=== PATIENT | female | born 1985 | race Two or more races ===

== ENCOUNTER 2025-01-23 13:14 | Emergency (ER) | payer OTHER ==
[~2025-01-23] VITALS: Ht 162.6 cm; Wt 74.0 kg
[2025-01-23 13:24] VITALS: BP 113/74; PULSE 68; RESP 18; TEMP 98.6; O2SAT 98
[2025-01-23] MEDS: KETOROLAC TROMETHAMINE 30 MG/ML VIAL IVP ONE (14:37)
[2025-01-23] MEDS: METHOCARBAMOL 100 MG/ML 10 ML VIAL IVP ONE (14:37)
[2025-01-23] MEDS: MORPHINE SULFATE 4 MG/ML SYRINGE IVP ONE (14:38)
[2025-01-23] MEDS: ONDANSETRON HCL 4 MG/2 ML VIAL IVP ONE (14:38)
[2025-01-23] MEDS ORDERED: IBUP-1554 PO (15:21)
[2025-01-23] MEDS ORDERED: METH-659 PO (15:21)
[2025-01-23] MEDS ORDERED: HYDR-4062 PO (15:21)
== END 2025-01-23 15:46 | disposition home or self-care (01) ==
LOC: EMS 13:14
DX: S39.012A Strain of muscle, fascia and tendon of lower back, initial encounter (principal); I10 Essential (primary) hypertension; Z90.710 Acquired absence of both cervix and uterus; Z79.899 Other long term (current) drug therapy; X58.XXXA Exposure to other specified factors, initial encounter; Y93.89 Activity, other specified; Y92.89 Other specified places as the place of occurrence of the external cause; Y99.8 Other external cause status
CPT/HCPCS: 99284; 96374; 96375; J1885; J2270; J2405; J2800

== ENCOUNTER 2025-03-23 22:46 | Emergency (ER) | payer OTHER ==
[~2025-03-23] VITALS: Ht 165.1 cm; Wt 72.7 kg
[~2025-03-23 22:46] MED LIST: HYDR-4062 PO; IBUP-1554 PO; METH-659 PO
[2025-03-23 22:52] VITALS: TEMP 97.9
[2025-03-24] MEDS: LIDOCAINE 5% TRANSDERMAL PATCH TD ONE (02:22)
[2025-03-24] MEDS: KETOROLAC TROMETHAMINE 30 MG/ML VIAL IM ONE (02:22)
[2025-03-24] MEDS ORDERED: TRAM50TA5 PO (05:44)
[2025-03-24] MEDS ORDERED: LIDO-57 TP (05:44)
[2025-03-24 06:00] VITALS: BP 129/82; PULSE 8; RESP 17; O2SAT 98
== END 2025-03-24 06:24 | disposition home or self-care (01) ==
LOC: EMS 22:46
DX: M54.50 Low back pain, unspecified (principal); I10 Essential (primary) hypertension; Z90.710 Acquired absence of both cervix and uterus; Z79.899 Other long term (current) drug therapy
CPT/HCPCS: 99285; 84703; 36415; 72100; 96372; J1885